=== PATIENT | male | born 1950 | race Caucasian/White ===

== ENCOUNTER 2018-09-22 12:20 | Emergency (ER) | payer OTHER, BC ==
[~2018-09-22] VITALS: Ht 177.8 cm; Wt 74.8 kg
[2018-09-22 13:20] LABS: ANION GAP 10 mmol/L (7-16); BUN 16 mg/dL (7-18); CALCIUM 9.2 mg/dL (8.5-10.1); CHLORIDE 109 mmol/L (98-107); CO2 26 mmol/L (21-32); GLUCOSE 111 mg/dL (74-106); SODIUM 145 mmol/L (136-145)
[2018-09-22 13:30] LABS: ALBUMIN 3.7 g/dL (3.4-5.0); MAGNESIUM 1.9 mg/dL (1.8-2.4); SGOT 18 U/L (15-37); SGPT 25 U/L (30-65); TOTAL BILIRUBIN 1.2 mg/dL (<0.1-1.0); TOTAL PROTEIN 7.3 g/dL (6.4-8.2); TROPONIN-I <0.06 ng/mL (<0.06)
[2018-09-22 13:40] LABS: ABSOLUTE NEUTROPHILS 5.3 thou/uL (1.4-8.2); BASOPHILS 0.6 % (0.0-2.0); EOSINOPHILS 0.5 % (0.0-3.0); HEMOGLOBIN 14.2 gm/dL (14.0-18.0); LYMPHOCYTES 23.8 % (24.0-44.0); MCH 31.7 pg (26.0-34.0); MCHC 33.9 g/dL (28.0-37.0); MCV 93.6 fL (80.0-100.0); PLATELET COUNT 125 thou/uL (150-400); POLYS 68.1 % (36.0-66.0); RBC 4.48 mil/uL (4.50-6.00); RDW 14.6 % (10.5-14.5); WBC 7.7 thou/uL (4.0-11.0)
[2018-09-22 15:12] VITALS: BP 115/82
--- NOTE | 2018-09-24 18:14 | EKG ---
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1950 Requested By: Ricardo Smith Order Number: [id number] MD: Manuelito Valdez Measurements Intervals [place] Rate: 154 P: [place]: QRS: -32 QRSD: 127 T: 265 QT: 329 QTc: 527 Interpretive Statements Atrial flutter with a rapid ventricular response Poor R wave progression Compared to ECG 06/30/2005 10:50:14 Sinus rhythm no longer present Electronically Signed On 09-24-2018 18:13:50 CDT by Manuelito Valdez [email or web address] ��������������������������������������������� <ELECTRONICALLY SIGNED> ���������������������������������������� By: Manuelito Valdez MD, [facility] ��������������������������������������������� 09/24/18 1813 1224 1224 Manuelito Valdez MD, FACC /EPI
--- NOTE | 2018-09-24 18:14 | EKG ---
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1950 Requested By: Ricardo Smith Order Number: [id number] MD: Manuelito Valdez Measurements Intervals [place] Rate: 67 P: 46 SD: 124 QRS: 38 QRSD: 96 T: 9 QT: 388 QTc: 410 Interpretive Statements Sinus rhythm Poor R wave progression Compared to ECG 06/30/2005 10:50:14 Sinus rhythm has replaced atrial flutter Electronically Signed On 09-24-2018 18:14:15 CDT by Manuelito Valdez [email or web address] ��������������������������������������������� <ELECTRONICALLY SIGNED> ���������������������������������������� By: Manuelito Valdez MD, [facility] ��������������������������������������������� 09/24/18 1814 1254 1254 Manuelito Valdez MD, FACC /EPI
== END 2018-09-22 15:12 | disposition home or self-care (01) ==
LOC: ER 12:20
PROVIDERS: Emergency Medicine
DX: I48.92 Unspecified atrial flutter (principal)

== ENCOUNTER 2020-12-13 14:17 | Emergency (ER) | payer OTHER, BC ==
[~2020-12-13] VITALS: Ht 170.2 cm; Wt 69.4 kg
[2020-12-13 15:02] VITALS: BP 108/62
== END 2020-12-13 18:45 | disposition home or self-care (01) ==
LOC: ER 14:17
DX: M79.672 Pain in left foot (principal); I25.2 Old myocardial infarction; I25.10 Atherosclerotic heart disease of native coronary artery without angina pectoris; E11.9 Type 2 diabetes mellitus without complications; Z95.1 Presence of aortocoronary bypass graft; X50.1XXA Overexertion from prolonged static or awkward postures, initial encounter; Y93.A1 Activity, exercise machines primarily for cardiorespiratory conditioning; Y92.89 Other specified places as the place of occurrence of the external cause; Y99.9 Unspecified external cause status